=== PATIENT | male | born 1945 | race Caucasian/White ===

== ENCOUNTER 2019-07-20 14:34 | Inpatient (IN) | payer MEDICARE ==
[~2019-07-20] VITALS: Ht 167.6 cm; Wt 76.9 kg
[2019-07-20] MEDS ORDERED: ZYRTEC10 M2 PO (14:47)
[2019-07-20 15:33] LABS: BASOPHILS ABSOLUTE AUTO 0.02 K/mm3 (0.00-0.23); BASOPHILS PERCENT AUTO 0 % (0-2); EOSINOPHILS ABSOLUTE AUTO 0.01 K/mm3 (0.00-0.68); EOSINOPHILS PERCENT AUTO 0 % (0-6); Hematocrit 26.9 % (37.0-53.0); Hemoglobin 8.4 g/dL (13.5-17.5); IMMATURE GRAN ABSOLUTE AUTO 0.01 K/mm3 (0.00-0.10); IMMATURE GRAN PERCENT AUTO 0 % (0-1); LYMPHOCYTES ABSOLUTE AUTO 0.46 K/mm3 (0.84-5.20); LYMPHOCYTES PERCENT AUTO 10 % (21-46); MONOCYTES ABSOLUTE AUTO 0.37 K/mm3 (0.16-1.47); MONOCYTES PERCENT AUTO 8 % (4-13); Mean Corpuscular HGB 31.3 pg (26.0-34.0); Mean Corpuscular HGB Conc 31.2 g/dL (31.5-36.5); Mean Corpuscular Volume 100 fL (80-100); Mean Platelet Volume 8.8 fL (9.1-12.4); NEUTROPHILS ABSOLUTE AUTO 3.86 K/mm3 (1.96-9.15); NEUTROPHILS PERCENT AUTO 82 % (41-73); Platelet Count 148 K/mm3 (150-400); RDW Coefficient Variation 17.1 % (11.7-14.2); RDW Standard Deviation 62.3 fL (35.1-46.3); Red Blood Cell Count 2.68 M/mm3 (4.30-5.90); White Blood Cell Count 4.73 K/mm3 (4.00-11.30)
[2019-07-20 15:48] LABS: International Normalized Ratio 1.19; Prothrombin Time Results 12.6 Sec (9.7-11.5)
[2019-07-20 15:51] LABS: Alanine Aminotransfer (ALT/SGP 15 U/L (12-78); Albumin, Blood 2.8 g/dL (3.4-5.0); Albumin/Globulin Ratio 0.6 (0.8-1.8); Alk Phos 128 U/L (50-136); Anion Gap 14 mmol/L (6-16); Aspartate Aminotrans (AST/SGOT 47 U/L (12-37); Bilirubin, Direct 0.5 mg/dL (0.0-0.3); Bilirubin, Indirect 0.1 mg/dL (0.1-0.7); Bilirubin, Total 0.6 mg/dL (0.1-1.0); Blood Urea Nitrogen 9 mg/dL (8-24); CO2, Blood 18 mmol/L (21-32); Calcium, Blood 7.8 mg/dL (8.5-10.1); Chloride, Blood 100 mmol/L (98-108); Creatinine, Blood 0.69 mg/dL (0.60-1.20); Globulin, Blood 4.7 g/dL (2.2-4.0); Glomerular Filtration Rate >60 (60-); Glucose, Blood 104 mg/dL (70-99); Potassium, Blood 4.7 mmol/L (3.5-5.5); Sodium, Blood 132 mmol/L (136-145); Total Protein, Blood 7.5 g/dL (6.4-8.2)
[2019-07-20] MEDS ORDERED: PHENYLEPHRINE PO (16:52)
[2019-07-20] MEDS ORDERED: ACETAMINOPHEN PO (16:52)
[2019-07-20 19:23] LABS: Base Excess Venous -7.5 mmol/L; Bicarbonate Venous 18.8 mmol/L (24.0-30.0); PO2 Venous 94.8 mmHg (38-42); pH Blood Venous 7.35 (7.34-7.37)
[2019-07-20 21:14] LABS: Alpha Feto Protein, Tumor Mkr 4.8 ng/mL (0.0-8.0)
[2019-07-20 21:24] LABS: Source, Urine Clean Catch
[2019-07-20 21:27] LABS: Appearance, Urine Clear (Clear); Bilirubin, Urine Neg (Neg); Blood, Urine Neg (Neg); Color, Urine Amber (P-Yellow); Glucose Qualitative, Urine Neg (Neg); Ketones, Urine 2+ (Neg); Leukocyte Esterase, Urine Neg (Neg); Nitrite, Urine Neg (Neg); Protein, Urine 1+ (Neg); Urobilinogen, Urine 2+ (Normal)
[2019-07-20 23:21] LABS: U Amphetamine Screen Not Detected; U Barbituate Screen Not Detected; U Benzodiazapine Screen Not Detected; U Buprenorphine Screen Not Detected; U Cannabinoids Screen Not Detected; U Cocaine Screen Not Detected; U Methadone Screen Not Detected; U Methamphetamine Screen Not Detected; U Opiates Screen DETECTED; U Oxycodone Screen Not Detected; U Phencyclidine Screen Not Detected; U Propoxyphene Screen Not Detected
--- NOTE | 2019-07-21 01:27 | NUR ---
ADMIT NOTE PATIENT ADMITED FROM THE ER EARLIER THIS SHIFT. PATIENT WAS ABLE TO TRANSFER SELF FROM THE GURENY TO THE BED WITH MINIMAL ASSIST. PATIENT ORIENTED TO THE ROOM, UNIT, AND CALL LIGHT. PATIENT EDUCATED ON USING [facility] CALL LIGHT TO CALL STAFF FOR ASSISTANCE FOR USING THE BATHROOM. PATIENT ALSO EDUCATED ON USING THE URINAL BUT HAS NOT BEEN COMPLIENT WITH USING IT. WILL CONTINUE TO PROVIDE EDUCATION. PATIENT HAS NOT BEEN RECEPTIVE TO EDUCATION SO FAR. PATIENT STATES THAT HE WILL BE LEAVING TOMORROW. WILL CONTINUE TO MONITOR PATIENT.
[2019-07-21 04:40] LABS: BASOPHILS ABSOLUTE AUTO 0.01 K/mm3 (0.00-0.23); BASOPHILS PERCENT AUTO 0 % (0-2); EOSINOPHILS PERCENT AUTO 0 % (0-6); Hematocrit 24.2 % (37.0-53.0); Hemoglobin 7.5 g/dL (13.5-17.5); IMMATURE GRAN ABSOLUTE AUTO 0.02 K/mm3 (0.00-0.10); IMMATURE GRAN PERCENT AUTO 0 % (0-1); LYMPHOCYTES PERCENT AUTO 11 % (21-46); MONOCYTES ABSOLUTE AUTO 0.41 K/mm3 (0.16-1.47); MONOCYTES PERCENT AUTO 9 % (4-13); Mean Corpuscular HGB 30.9 pg (26.0-34.0); Mean Corpuscular Volume 100 fL (80-100); Mean Platelet Volume 8.9 fL (9.1-12.4); NEUTROPHILS ABSOLUTE AUTO 3.63 K/mm3 (1.96-9.15); NEUTROPHILS PERCENT AUTO 80 % (41-73); Platelet Count 115 K/mm3 (150-400); RDW Coefficient Variation 16.8 % (11.7-14.2); RDW Standard Deviation 61.1 fL (35.1-46.3); Red Blood Cell Count 2.43 M/mm3 (4.30-5.90); White Blood Cell Count 4.57 K/mm3 (4.00-11.30)
[2019-07-21 04:59] LABS: Alanine Aminotransfer (ALT/SGP 13 U/L (12-78); Albumin, Blood 2.6 g/dL (3.4-5.0); Albumin/Globulin Ratio 0.6 (0.8-1.8); Alk Phos 112 U/L (50-136); Anion Gap 10 mmol/L (6-16); Aspartate Aminotrans (AST/SGOT 35 U/L (12-37); Bilirubin, Total 0.9 mg/dL (0.1-1.0); Blood Urea Nitrogen 10 mg/dL (8-24); Bun/Creatinine Ratio 16.4 (12.0-20.0); CO2, Blood 23 mmol/L (21-32); Calcium, Blood 8.1 mg/dL (8.5-10.1); Chloride, Blood 100 mmol/L (98-108); Creatinine, Blood 0.61 mg/dL (0.60-1.20); Globulin, Blood 4.1 g/dL (2.2-4.0); Glomerular Filtration Rate >60 (60-); Glucose, Blood 86 mg/dL (70-99); Potassium, Blood 4.7 mmol/L (3.5-5.5); Sodium, Blood 133 mmol/L (136-145); Total Protein, Blood 6.7 g/dL (6.4-8.2)
--- NOTE | 2019-07-21 06:06 | NUR ---
UPDATE DR FINCH NOTIFIED OF PATIENT'S HGB RESULTS THIS AM. ORDER RECEIVED.
--- NOTE | 2019-07-21 07:43 | NUR ---
SHIFT SUMMARY PATIENT PLEASENT THROUGHOUT THE NIGHT. PATIENT APPEARED TO SLEEP WELL ON AND OFF LAST NIGHT. PATIENT HAD NO COMPLAINTS OF PAIN ONCE ADMITTED TO THE FLOOR. VITAL SIGNS CHARTED. PATIENT CURRENTLY APPEARS TO BE ASLEEP. REPORT GIVEN TO ONCOMING RN.
[2019-07-21 08:10] LABS: HBSAG SCREEN Negative (Negative); HEP B CORE AB, TOT Negative (Negative); HEP C VIRUS AB <0.1 (0.0-0.9)
[2019-07-21 09:11] LABS: HEP A AB, IGM Negative (Negative); HEP B CORE AB, IGM Negative (Negative)
[2019-07-21 12:30] LABS: Hematocrit 25.9 % (37.0-53.0); Hemoglobin 8.1 g/dL (13.5-17.5)
[2019-07-21 12:36] LABS: BASOPHILS ABSOLUTE AUTO 0.01 K/mm3 (0.00-0.23); BASOPHILS PERCENT AUTO 0 % (0-2); EOSINOPHILS ABSOLUTE AUTO 0.01 K/mm3 (0.00-0.68); EOSINOPHILS PERCENT AUTO 0 % (0-6); Hematocrit 25.5 % (37.0-53.0); Hemoglobin 8.1 g/dL (13.5-17.5); IMMATURE GRAN ABSOLUTE AUTO 0.01 K/mm3 (0.00-0.10); IMMATURE GRAN PERCENT AUTO 0 % (0-1); LYMPHOCYTES ABSOLUTE AUTO 0.52 K/mm3 (0.84-5.20); LYMPHOCYTES PERCENT AUTO 9 % (21-46); MONOCYTES ABSOLUTE AUTO 0.58 K/mm3 (0.16-1.47); MONOCYTES PERCENT AUTO 10 % (4-13); Mean Corpuscular HGB 31.4 pg (26.0-34.0); Mean Corpuscular HGB Conc 31.8 g/dL (31.5-36.5); Mean Corpuscular Volume 99 fL (80-100); Mean Platelet Volume 9.2 fL (9.1-12.4); NEUTROPHILS ABSOLUTE AUTO 4.73 K/mm3 (1.96-9.15); NEUTROPHILS PERCENT AUTO 81 % (41-73); Platelet Count 148 K/mm3 (150-400); RDW Coefficient Variation 16.9 % (11.7-14.2); RDW Standard Deviation 60.4 fL (35.1-46.3); Red Blood Cell Count 2.58 M/mm3 (4.30-5.90); White Blood Cell Count 5.86 K/mm3 (4.00-11.30)
--- NOTE | 2019-07-21 12:39 | NUR ---
Echocardiogram completed.
--- NOTE | 2019-07-21 13:02 | NUR ---
Ambulatory to the bathroom independently. The patient has not been measuring his urine, despite staff requests to do so, and availability of 2 urinal measuring jugs, one at the bedside and the other in the bathroom. Pt's states that it is because the diuretics have not permitted him the time to use the urinal by the time he gets into the bathroom. Confirmed with the pt that the urinal at the bedside within reach is for his use of measuring urina as well. He verbalized understanding of the request, and the rationale behind it as he is on diuretics.
--- NOTE | 2019-07-21 14:07 | NUR ---
The pt was taken by wheelchair to imaging for his paracentesis.
[2019-07-21 15:20] LABS: Body Fluid WBC Count 190 /mm3 (0-999)
[2019-07-21 15:33] LABS: Albumin, Body Fluid 0.9 g/dL; Glucose, Body Fluid 102 mg/dL; Lactate Dehydrogenase, Body Fl 43 U/L; Protein, Body Fluid 2.1 g/dL
[2019-07-21 15:37] LABS: RBC Count, Body Fluid 133 /mm3 (0-0)
--- NOTE | 2019-07-21 15:40 | NUR ---
The pt returned from the USS guided paracentesis, states that "they took off 4 liters". Abdomen softer, still distende, but pt states much more comfortable. He is ambulatory in the room, without any complaints or voiced needs.
[2019-07-21 15:45] LABS: Appearance, Body Fluid Hazy (Clear); Color, Body Fluid Yellow (None-Yellow); Total Cell Count, Body Fluid 100
--- NOTE | 2019-07-21 17:32 | NUR ---
summary The pt has been up in the room, ambulatory without assistance to the bathroom ad larissa. Requested nicotine patch which was ordered and placed. He states that it has helped. USS guided paracentesis was was done this afternoon; pt states that they took off 4 liters. Vital signs stable, blood pressure a bit elevated. Sinus rhythm per telemetry monitoring throughout the shift, occasionally sinus tachycardia.
[2019-07-22 03:58] LABS: Hematocrit 22.4 % (37.0-53.0); Hemoglobin 7.2 g/dL (13.5-17.5); Mean Corpuscular HGB 31.7 pg (26.0-34.0); Mean Corpuscular HGB Conc 32.1 g/dL (31.5-36.5); Mean Corpuscular Volume 99 fL (80-100); Mean Platelet Volume 8.9 fL (9.1-12.4); Platelet Count 118 K/mm3 (150-400); RDW Coefficient Variation 17.2 % (11.7-14.2); RDW Standard Deviation 60.1 fL (35.1-46.3); Red Blood Cell Count 2.27 M/mm3 (4.30-5.90); White Blood Cell Count 4.03 K/mm3 (4.00-11.30)
[2019-07-22 04:15] LABS: International Normalized Ratio 1.36; Prothrombin Time Results 14.3 Sec (9.7-11.5)
[2019-07-22 04:29] LABS: Alanine Aminotransfer (ALT/SGP 11 U/L (12-78); Albumin, Blood 2.3 g/dL (3.4-5.0); Albumin/Globulin Ratio 0.6 (0.8-1.8); Alk Phos 79 U/L (50-136); Anion Gap 9 mmol/L (6-16); Aspartate Aminotrans (AST/SGOT 31 U/L (12-37); Bilirubin, Direct 0.5 mg/dL (0.0-0.3); Bilirubin, Indirect 0.7 mg/dL (0.1-0.7); Bilirubin, Total 1.2 mg/dL (0.1-1.0); Blood Urea Nitrogen 10 mg/dL (8-24); Bun/Creatinine Ratio 17.6 (12.0-20.0); CO2, Blood 24 mmol/L (21-32); Calcium, Blood 7.9 mg/dL (8.5-10.1); Chloride, Blood 101 mmol/L (98-108); Creatinine, Blood 0.57 mg/dL (0.60-1.20); Globulin, Blood 3.6 g/dL (2.2-4.0); Glomerular Filtration Rate >60 (60-); Glucose, Blood 79 mg/dL (70-99); Phosphorus, Blood 2.8 mg/dL (2.5-4.9); Potassium, Blood 4.1 mmol/L (3.5-5.5); Sodium, Blood 134 mmol/L (136-145); Total Protein, Blood 5.9 g/dL (6.4-8.2)
--- NOTE | 2019-07-22 05:35 | NUR ---
HGB RESULTS DR FINCH NOTIFIED OF PATIENT'S HGB RESULTS THIS AM. AN ORDER TO RECHECK H&H AT 1200 TODAY RECEIVED. NO FURTHER ORDERS RECEIVED AT THIS TIME.
[2019-07-22 07:08] LABS: HBSAG SCREEN Negative (Negative); HCV ANTIBODY <0.1 (0.0-0.9); HEP B CORE AB, TOT Negative (Negative)
--- NOTE | 2019-07-22 07:19 | NUR ---
SHIFT SUMMARY PATIENT PLEASENT THROUGHOUT THE NIGHT. PATIENT APPEARED TO NAP ON AND OFF LAST NIGHT. PATIENT CONTINUES TO BE NONCOMPLIENT ABOUT USING THE URINAL. PATIENT CURRENTLY RESTING IN BED. REPORT GIVEN TO ONCOMING RN.
--- NOTE | 2019-07-22 10:10 | NUR ---
The pt states that his belly feels firm again. States he knows that he needs to quit drinking. STates he has quit 4 or 5 times already, and that at 1 pm it will be 3 days since his last drink, and states that he has not had any withdrawl symptoms at all. States that he likes his habits, though, and unless he is really scared or angry at himself, he doesn't drop them. States that he doesn't want to quit smoking, but that he is backing off on the amount. states that he was smoking 3 packs per day, and he has cut back to about 2 packs per day now.
[2019-07-22 11:27] LABS: Antinuclear Antibody Screen Negative (Negative)
--- NOTE | 2019-07-22 11:54 | NUR ---
Dr. Gray was here to see the patient. She states she wants to confirm with Dr. Nieves before the pt can be discharged today. Hgb and HCt being drawn at this time.
[2019-07-22 12:26] LABS: Hematocrit 26.5 % (37.0-53.0); Hemoglobin 8.3 g/dL (13.5-17.5)
--- NOTE | 2019-07-22 12:31 | NUR ---
Call to Dr. Gray's cell phone to notify of results of Hgb and Hct drawn at noon. No answer to call, so message was left on the voice mail.
[2019-07-22] MEDS ORDERED: DOCU100 PO (13:25)
[2019-07-22] MEDS ORDERED: FURO40 PO (13:26)
[2019-07-22] MEDS ORDERED: Hair, Skin & N1 EACH PO (13:26)
[2019-07-22] MEDS ORDERED: FERSU300 PO (13:26)
[2019-07-22] MEDS ORDERED: ALDACTONE100 M1 PO (13:27)
[2019-07-22] MEDS ORDERED: B-1100 M1 PO (13:27)
--- NOTE | 2019-07-22 14:07 | NUR ---
1330 [facility] Onah Mckeon asked the pt on my behalf which pharmacy he uses in order to have his RX called/faxed in. 1345 The pt called U desk to ask when he was going to be discharged. He stated by phone that he was waiting in the ER and was impatient to go home. 1400 I went down to the ER with the pt's discharge papers, removed his IV, returned all of his home medications, and educated him on all of the discharge instructions as well as new prescriptions. The pt stated that he became impatient while waiting and walked down to the ED. He was assisted to find the courtesy phone so that he could call himself a taxi to get home.
== END 2019-07-22 14:28 | disposition home or self-care (01) | DRG 433 ==
LOC: ER 14:34 → PCU 18:05 → ERHOLD 18:05 → PCU 20:56
PROVIDERS: Family Medicine; Internal Medicine; Internal Medicine Gastroenterology; Nurse Practitioner Acute Care; Physician Assistant; ADMIT Internal Medicine
PROC: 0W9G3ZZ Drainage of Peritoneal Cavity, Percutaneous Approach (ICD-10-PCS; principal; 2019-07-21)
DX: K70.31 Alcoholic cirrhosis of liver with ascites (principal); E87.1 Hypo-osmolality and hyponatremia; K76.6 Portal hypertension; E46 Unspecified protein-calorie malnutrition; D69.6 Thrombocytopenia, unspecified; D50.9 Iron deficiency anemia, unspecified; F17.210 Nicotine dependence, cigarettes, uncomplicated; E88.09 Other disorders of plasma-protein metabolism, not elsewhere classified; Z68.26 Body mass index [BMI] 26.0-26.9, adult; Z77.090 Contact with and (suspected) exposure to asbestos; N18.9 Chronic kidney disease, unspecified; I12.9 Hypertensive chronic kidney disease with stage 1 through stage 4 chronic kidney disease, or unspecified chronic kidney disease
CPT/HCPCS: 36415; 49083; 71046; 72100; 76700; 80048; 80053; 80076; 82042; 82105; 82248; 82378; 82607; 82728; 82746; 82803; 82945; 83540; 83550; 83615; 83690; 83735; 83880; 84100; 84157; 84443; 84484; 85014; 85018; 85025; 85027; 85610; 86038; 86317; 86704; 86705; 86708; 86709; 86803; 86850; 86900; 86901; 87070; 87075; 87205; 87340; 89051; 93005; 93010; 93306; 96374; 99285-25; A9270-GY; G0480; J1650; J1940

== ENCOUNTER 2019-08-08 08:05 | Inpatient (IN) | payer MEDICARE, OTHER ==
[~2019-08-08] VITALS: Ht 167.6 cm; Wt 77.0 kg
[~2019-08-08 08:05] MED LIST: ACETAMINOPHEN PO; ALDACTONE100 M1 PO; B-1100 M1 PO; DOCU100 PO; FERSU300 PO; FURO40 PO; Hair, Skin & N1 EACH PO; PHENYLEPHRINE PO; ZYRTEC10 M2 PO
[2019-08-08 10:00] LABS: BASOPHILS ABSOLUTE AUTO 0.04 K/mm3 (0.00-0.23); BASOPHILS PERCENT AUTO 0 % (0-2); EOSINOPHILS ABSOLUTE AUTO 0.01 K/mm3 (0.00-0.68); EOSINOPHILS PERCENT AUTO 0 % (0-6); Hematocrit 28.9 % (37.0-53.0); Hemoglobin 9.2 g/dL (13.5-17.5); IMMATURE GRAN ABSOLUTE AUTO 0.08 K/mm3 (0.00-0.10); IMMATURE GRAN PERCENT AUTO 0 % (0-1); LYMPHOCYTES ABSOLUTE AUTO 0.58 K/mm3 (0.84-5.20); LYMPHOCYTES PERCENT AUTO 3 % (21-46); MONOCYTES ABSOLUTE AUTO 0.75 K/mm3 (0.16-1.47); MONOCYTES PERCENT AUTO 4 % (4-13); Mean Corpuscular HGB 31.6 pg (26.0-34.0); Mean Corpuscular HGB Conc 31.8 g/dL (31.5-36.5); Mean Corpuscular Volume 99 fL (80-100); Mean Platelet Volume 9.4 fL (9.1-12.4); NEUTROPHILS ABSOLUTE AUTO 17.59 K/mm3 (1.96-9.15); NEUTROPHILS PERCENT AUTO 92 % (41-73); Platelet Count 167 K/mm3 (150-400); RDW Coefficient Variation 17.7 % (11.7-14.2); RDW Standard Deviation 64.5 fL (35.1-46.3); Red Blood Cell Count 2.91 M/mm3 (4.30-5.90); White Blood Cell Count 19.05 K/mm3 (4.00-11.30)
[2019-08-08 10:18] LABS: Alanine Aminotransfer (ALT/SGP 15 U/L (12-78); Albumin, Blood 2.5 g/dL (3.4-5.0); Albumin/Globulin Ratio 0.5 (0.8-1.8); Alk Phos 118 U/L (50-136); Anion Gap 11 mmol/L (6-16); Aspartate Aminotrans (AST/SGOT 50 U/L (12-37); Blood Urea Nitrogen 24 mg/dL (8-24); Bun/Creatinine Ratio 30.5 (12.0-20.0); CO2, Blood 28 mmol/L (21-32); Calcium, Blood 8.1 mg/dL (8.5-10.1); Chloride, Blood 93 mmol/L (98-108); Creatinine, Blood 0.79 mg/dL (0.60-1.20); Globulin, Blood 4.6 g/dL (2.2-4.0); Glomerular Filtration Rate >60 (60-); Glucose, Blood 119 mg/dL (70-99); Potassium, Blood 3.1 mmol/L (3.5-5.5); Sodium, Blood 132 mmol/L (136-145); Total Protein, Blood 7.1 g/dL (6.4-8.2)
[2019-08-08 13:17] LABS: Source, Urine Clean Catch
[2019-08-08 13:21] LABS: Bilirubin, Urine Neg (Neg); Blood, Urine Neg (Neg); Glucose Qualitative, Urine Neg (Neg); Ketones, Urine 2+ (Neg); Leukocyte Esterase, Urine 1+ (Neg); Nitrite, Urine Neg (Neg); Protein, Urine Neg (Neg); Specific Gravity, Urine 1.015 (1.003-1.022); Urobilinogen, Urine 2+ (Normal)
[2019-08-08 13:28] LABS: Appearance, Urine Clear (Clear); Color, Urine Yellow (P-Yellow)
[2019-08-08 13:30] LABS: Bacteria Rare /hpf; Hyaline Casts 0-2 /lpf (0-2); Red Blood Cells, Urine Not Seen /hpf (0-2); Squamous Epithelial Cells Few /hpf (Few); White Blood Cells, Urine 0-2 /hpf (0-5)
--- NOTE | 2019-08-08 15:47 | NUR ---
SHIFT SUMMARY PT ARRIVED FROM ED AND WAS ASSISTED TO BED AND ORIENTED TO ROOM AND NURSING STAFF. HE IS A/O X 4 A LITTLE SLOW AT TIMES BUT JUST APPEARS TO BE GATHERING HIS THOUGHTS BEFORE SPEAKING. HIS SKIN IS PALE AND DUSKY WITH THE EXCEPTION OF HIS BLE WHIC ARE WARM AND RED WITH EDEMA AND SOME BREAKDOWN NOTED IN CHART/ASSESSMENT AND HE HAS A SKIN TEAR ON HIS LEFT ELBOW. PT REPORTS FALLING FREQUENTLY AT HOME AND MORE RECENTLY THIS HAS INCREASED ALONG WITH HIS WEAKNESS. HE DOES REPORT SMOKING A PACK A DAY BUT DENIES ANY MORE THAN OCCASIONAL BEER DRINKING. PT DENIES ANY SOB/CHEST PAIN. AN OCCASIONAL DRY CAOUGH WAS NOTED DURING HIS ASSESSMENT. HE SAYS HE LIVES ALONE AND WOULD LIKE TO RETURN HOME WHEN HE LEAVES THE HOSPITAL. HE IS NPO STATUS PER DR CAMPBELL AND THIS WAS EXPLAINED TO THE PT. HE IS PLEASANT AND COOPERATIVE WITH HIS CARE. HE UNDERSTANDS THE USE OF THE CALL LIGHT AND THE BED ALARM IS ON DUE TO HIS HIGH FALL RISK. PT STATES THAT HE WILL CALL BEFORE GETTING UP. HE IS RESTING IN BED.
--- NOTE | 2019-08-09 04:38 | NUR ---
THEORETICAL PHYSICS TEACHER SUMMARY PT AAOX3 BUT SEEMS TO BE DELAYED AT TIMES WHEN RESPONDING TO STAFF OR COMPREHENDING INSTRUCTION. PT ONLY COMPLAINS OF PAIN IN BILATERAL LOWER LEGS WHERE CELLULITIS IS PRESENT. TREATED WITH ULTRAM WITH RELIEF. PT HAS BEEN INCONTINENT AT TIMES BUT REFUSES TO WEAR ATTENDS AND WILL NOT CALL FOR ASSISTANCE TO USE URINAL. VSS, WILL CONTINUE TO MONITOR.
[2019-08-09 05:21] LABS: BASOPHILS ABSOLUTE AUTO 0.01 K/mm3 (0.00-0.23); BASOPHILS PERCENT AUTO 0 % (0-2); EOSINOPHILS ABSOLUTE AUTO 0.14 K/mm3 (0.00-0.68); EOSINOPHILS PERCENT AUTO 1 % (0-6); Hematocrit 26.1 % (37.0-53.0); Hemoglobin 8.3 g/dL (13.5-17.5); IMMATURE GRAN ABSOLUTE AUTO 0.08 K/mm3 (0.00-0.10); IMMATURE GRAN PERCENT AUTO 1 % (0-1); LYMPHOCYTES ABSOLUTE AUTO 0.89 K/mm3 (0.84-5.20); LYMPHOCYTES PERCENT AUTO 7 % (21-46); MONOCYTES ABSOLUTE AUTO 0.49 K/mm3 (0.16-1.47); MONOCYTES PERCENT AUTO 4 % (4-13); Mean Corpuscular HGB 32.3 pg (26.0-34.0); Mean Corpuscular HGB Conc 31.8 g/dL (31.5-36.5); Mean Platelet Volume 9.4 fL (9.1-12.4); NEUTROPHILS ABSOLUTE AUTO 11.89 K/mm3 (1.96-9.15); NEUTROPHILS PERCENT AUTO 88 % (41-73); Platelet Count 152 K/mm3 (150-400); RDW Coefficient Variation 18.3 % (11.7-14.2); RDW Standard Deviation 67.7 fL (35.1-46.3); Red Blood Cell Count 2.57 M/mm3 (4.30-5.90)
[2019-08-09 05:36] LABS: Mean Corpuscular Volume 102 fL (80-100)
[2019-08-09 05:40] LABS: Alanine Aminotransfer (ALT/SGP 14 U/L (12-78); Albumin, Blood 2.1 g/dL (3.4-5.0); Albumin/Globulin Ratio 0.5 (0.8-1.8); Alk Phos 104 U/L (50-136); Anion Gap 7 mmol/L (6-16); Aspartate Aminotrans (AST/SGOT 38 U/L (12-37); Bilirubin, Total 0.9 mg/dL (0.1-1.0); Blood Urea Nitrogen 23 mg/dL (8-24); Bun/Creatinine Ratio 33.1 (12.0-20.0); CO2, Blood 29 mmol/L (21-32); Calcium, Blood 7.8 mg/dL (8.5-10.1); Chloride, Blood 100 mmol/L (98-108); Globulin, Blood 4.1 g/dL (2.2-4.0); Glomerular Filtration Rate >60 (60-); Glucose, Blood 73 mg/dL (70-99); Potassium, Blood 3.2 mmol/L (3.5-5.5); Sodium, Blood 136 mmol/L (136-145); Total Protein, Blood 6.2 g/dL (6.4-8.2)
--- NOTE | 2019-08-09 18:29 | NUR ---
SHIFT SUMMARY: PT A&O X4 AND 1 PERSON ASSIST IN ROOM. PT AMBULATED TO RESTROOM TODAY WITH PHYSICAL THERAPY AND WALKER. HE IS ABLE TO USE THE URINAL AND HAS BEEN CONTINENT TODAY. PT ON RA WITH COARSE LUNG SOUNDS. PT REPORTS TOLERABLE PAIN THROUGHOUT SHIFT AND DENIES ANY NEED FOR PAIN MEDICATION. PT REPORTS NO NAUSEA AND REPORTS ABD DISTENTION IS NORMAL HIM. ABD IS FIRM. VSS. WILL CONTINUE TO MONITOR PT UNTIL GIVING REPORT TO RN.
--- NOTE | 2019-08-10 04:42 | NUR ---
PROCESS DEVELOPMENT CHEMIST SUMMARY NO ACUTE CHANGES THIS SHIFT. PT AAOX3 AND PLEASANT. PT ABLE TO STAND AND GET TO BSC WITH ASSISTANCE. HAD LARGE BM TONIGHT. THIS RN NOTICED PT HAD BOTTLE OF ASPIRIN AND A BOTTLE OF IBUPROFEN AT BEDSIDE. PT STATED HE TOOK ONE DOSE DURING THE DAY OF EACH FOR PAIN. EDUCATED PT ON NOT TAKING HOME MEDS WITHOUT APPROVAL FROM THE DOCTOR AND ASKED HIM NOT TO TAKE ANYMORE. MEDS REMOVED FROM PT'S REACH. PT AGREED BUT WAS RELUCTANT. VSS, WILL CONTINUE TO MONITOR.
[2019-08-10] MEDS ORDERED: CEPH500 PO (13:11)
[2019-08-10] MEDS ORDERED: ACET500 PO (13:11)
[2019-08-10] MEDS ORDERED: LACT PO (13:12)
[2019-08-10] MEDS ORDERED: MUPIROCIN15 GM TOP (13:12)
[2019-08-10] MEDS ORDERED: LIQUACEL 100 LI30 ML PO (13:12)
[2019-08-10] MEDS ORDERED: ALDACTONE100 MG PO (13:13)
[2019-08-10] MEDS ORDERED: SENN187 PO (13:13)
--- NOTE | 2019-08-10 14:18 | NUR ---
REPORT CALLED TO TALI AT [facility]. AWAITING TRANSPORT AT THIS TIME.
--- NOTE | 2019-08-10 14:50 | NUR ---
PT DISCHARGED TO [facility] AT 1442.
== END 2019-08-10 14:42 | DRG 872 ==
LOC: ER 08:05 → MEDS 13:04
PROVIDERS: Emergency Medicine; Physician Assistant; ADMIT Internal Medicine
DX: A41.9 Sepsis, unspecified organism (principal); L03.116 Cellulitis of left lower limb; K76.6 Portal hypertension; K70.31 Alcoholic cirrhosis of liver with ascites; D50.9 Iron deficiency anemia, unspecified; I10 Essential (primary) hypertension; F17.210 Nicotine dependence, cigarettes, uncomplicated; R29.6 Repeated falls; Z91.81 History of falling
CPT/HCPCS: 36415; 71045; 73590; 80053; 81001; 83605; 83880; 84484; 85025; 87086; 93005; 93010; 93970; 96361; 96365; 97110; 97116; 97162; 99285-25; A9270; J0696; J1644; J2543; J7030; J7050

== ENCOUNTER 2019-08-25 09:35 | Emergency (ER) | payer MEDICARE ==
[~2019-08-25] VITALS: Ht 167.6 cm; Wt 67.1 kg
[~2019-08-25 09:35] MED LIST changes: +ACET500 PO; +ALDACTONE100 MG PO; +CEPH500 PO; +LACT PO; +LIQUACEL 100 LI30 ML PO; +MUPIROCIN15 GM TOP; +SENN187 PO
[2019-08-25 10:51] LABS: BASOPHILS ABSOLUTE AUTO 0.03 K/mm3 (0.00-0.23); BASOPHILS PERCENT AUTO 0 % (0-2); EOSINOPHILS ABSOLUTE AUTO 0.11 K/mm3 (0.00-0.68); EOSINOPHILS PERCENT AUTO 1 % (0-6); Hematocrit 29.1 % (37.0-53.0); Hemoglobin 9.4 g/dL (13.5-17.5); IMMATURE GRAN ABSOLUTE AUTO 0.04 K/mm3 (0.00-0.10); IMMATURE GRAN PERCENT AUTO 0 % (0-1); LYMPHOCYTES ABSOLUTE AUTO 0.71 K/mm3 (0.84-5.20); LYMPHOCYTES PERCENT AUTO 8 % (21-46); MONOCYTES PERCENT AUTO 6 % (4-13); Mean Corpuscular HGB 33.2 pg (26.0-34.0); Mean Corpuscular HGB Conc 32.3 g/dL (31.5-36.5); Mean Corpuscular Volume 103 fL (80-100); Mean Platelet Volume 9.1 fL (9.1-12.4); NEUTROPHILS ABSOLUTE AUTO 7.53 K/mm3 (1.96-9.15); NEUTROPHILS PERCENT AUTO 85 % (41-73); Platelet Count 215 K/mm3 (150-400); RDW Coefficient Variation 15.9 % (11.7-14.2); RDW Standard Deviation 60.7 fL (35.1-46.3); Red Blood Cell Count 2.83 M/mm3 (4.30-5.90); White Blood Cell Count 8.92 K/mm3 (4.00-11.30)
[2019-08-25 11:14] LABS: Alanine Aminotransfer (ALT/SGP 18 U/L (12-78); Albumin, Blood 2.2 g/dL (3.4-5.0); Albumin/Globulin Ratio 0.3 (0.8-1.8); Alk Phos 131 U/L (50-136); Anion Gap 9 mmol/L (6-16); Aspartate Aminotrans (AST/SGOT 36 U/L (12-37); Bilirubin, Total 1.2 mg/dL (0.1-1.0); Blood Urea Nitrogen 31 mg/dL (8-24); Bun/Creatinine Ratio 30.1 (12.0-20.0); CO2, Blood 26 mmol/L (21-32); Chloride, Blood 97 mmol/L (98-108); Creatinine, Blood 1.03 mg/dL (0.60-1.20); Globulin, Blood 6.3 g/dL (2.2-4.0); Glomerular Filtration Rate >60 (60-); Glucose, Blood 97 mg/dL (70-99); Potassium, Blood 3.9 mmol/L (3.5-5.5); Sodium, Blood 132 mmol/L (136-145); Total Protein, Blood 8.5 g/dL (6.4-8.2)
[2019-08-25 11:45] LABS: International Normalized Ratio 1.27; Prothrombin Time Results 13.4 Sec (9.7-11.5)
--- NOTE | 2019-08-25 12:10 | NUR ---
ED Palliative Care Consult: Spoke with Dr Lane and discussed case. Pt may benefit from advanced care planning. Pt resting on gurny upon arrival. Pt denies pain and dyspnea at this time. Engaged in therapeutic listening as Pt attempts to discuss his concerns. Difficult to follow Pt's conversaton due to inability to articulate, word salad, and easily distracted. It appears Pt was receiving physical rehab at [facility] but felt rehab was not addressing his issues and left AMA. Pt is wanting a diagnosis regarding his legs and reason for inability to ambulate. Pt reports not having a PCP at this time. He reports plan to attempt getting established with Dr Mario. Attempted to educate Pt on his end stage renal disease and the importance of having assistance with ADLs. Pt's level of understanding is questionable and does not appear to process information appropriately. Discussed the possibility of being D/C from ED and the importance of establishing with a PCP. Pt reports no other concerns at this time. Spoke with Dr Lane and discussed case further. Pt does not appear to meet criteria for hospital admission. Plan for Pt to discharge from ED. Palliative Care will remain available.
== END 2019-08-25 13:50 | disposition home or self-care (01) ==
LOC: ER 09:35
PROVIDERS: Emergency Medicine
DX: R53.1 Weakness (principal); R18.8 Other ascites; K76.9 Liver disease, unspecified; S81.802D Unspecified open wound, left lower leg, subsequent encounter; S81.801D Unspecified open wound, right lower leg, subsequent encounter; Z88.8 Allergy status to other drugs, medicaments and biological substances; Z79.899 Other long term (current) drug therapy; Z79.2 Long term (current) use of antibiotics; I10 Essential (primary) hypertension; D50.9 Iron deficiency anemia, unspecified; F17.200 Nicotine dependence, unspecified, uncomplicated
CPT/HCPCS: 80053; 82140; 83690; 83735; 85025; 85610; 99283

== ENCOUNTER 2019-08-26 18:00 | Emergency (ER) | payer MEDICARE ==
[~2019-08-26] VITALS: Ht 167.6 cm; Wt 67.1 kg
== END 2019-08-26 21:55 | disposition home or self-care (01) ==
LOC: ER 18:00
DX: Z11.59 Encounter for screening for other viral diseases (principal)
CPT/HCPCS: 99283; U0002

== ENCOUNTER 2019-11-19 14:57 | Emergency (ER) | payer MEDICARE ==
[~2019-11-19] VITALS: Ht 167.6 cm; Wt 59.0 kg
[~2019-11-19 14:57] MED LIST changes: +ACET325 PO; +ASCO500 PO; +ATOR10 PO; +CLOP75 PO; +FURO20 PO
== END 2019-11-19 16:49 | disposition home or self-care (01) ==
LOC: ER 14:57
DX: M86.9 Osteomyelitis, unspecified (principal); Z45.2 Encounter for adjustment and management of vascular access device; I10 Essential (primary) hypertension; F17.210 Nicotine dependence, cigarettes, uncomplicated; Z89.511 Acquired absence of right leg below knee; Z91.02 Food additives allergy status; Z88.8 Allergy status to other drugs, medicaments and biological substances; Z79.899 Other long term (current) drug therapy; Z79.02 Long term (current) use of antithrombotics/antiplatelets
CPT/HCPCS: 99283